=== PATIENT | male | born 2000 | race Caucasian/White ===

== ENCOUNTER 2020-03-04 09:21 | Day surgery (SDC) | payer OTHER ==
[2020-02-29 13:01] VITALS: BMI 25.8
[2020-03-04 13:01] VITALS: TEMP 97.9
[2020-03-04 13:06] VITALS: BP 96/60; PULSE 65
--- NOTE | 2020-03-06 16:47 | PATH ---
Surgical Pathology Report Patient Name: LOU JACINTO [facility]. Rec. #: [id number] /Age/Gender: 2000 (Age: 19) / M Account: [id number] Location: [facility] Taken: 03/04/2020 Received: 03/04/2020 Reported: 03/06/2020 Physicians: Lele Flood M.D. Specimen(s) Received A: BIOPSY SIGMOID COLON B: BIOPSY RECTO-SIGMOID COLON C: BIOPSY RECTUM Clinical History Rectal bleed Postoperative diagnosis: Proctitis Final Diagnosis A. SIGMOID COLON, BIOPSY: COLONIC MUCOSA WITH NO PATHOLOGIC FINDINGS. B. RECTOSIGMOID COLON, BIOPSY: MODERATE CHRONIC ACTIVE COLITIS WITH CRYPTITIS AND MILD CRYPT ARCHITECTURAL DISTORTION. NEGATIVE FOR DYSPLASIA. (SEE NOTE) C. RECTUM, BIOPSY: MODERATE CHRONIC ACTIVE PROCTITIS WITH CRYPTITIS AND MILD CRYPT ARCHITECTURAL DISTORTION. NEGATIVE FOR DYSPLASIA. (SEE NOTE) Note: These findings are compatible with chronic inflammatory bowel disease. Correlation with clinical/endoscopic findings and follow-up is recommended. Electronically Signed Molly Medina M.D. Gross Description A. Received in formalin, labeled "biopsy sigmoid colon" are 2 christie, irregular portions of soft tissue measuring 0.2 and 0.3 cm. in greatest dimension. The specimens are submitted in toto in one cassette. B. Received in formalin, labeled "biopsy rectosigmoid colon" are 2 christie, irregular portions of soft tissue measuring 0.1 and 0.4 cm. in greatest dimension. The specimens are submitted in toto in one cassette. C. Received in formalin, labeled "biopsy rectum" are 3 christie, irregular portions of soft tissue ranging from 0.1-0.2 cm. in greatest dimension. The specimens are submitted in toto in one cassette. DL03/05/2020 saudi03/05/2020
== END 2020-03-04 11:15 | disposition home or self-care (01) ==
LOC: FASU-ENDO 09:21
PROVIDERS: ATTEND Internal Medicine Gastroenterology
PROC: 0DBN8ZX Excision of Sigmoid Colon, Via Natural or Artificial Opening Endoscopic, Diagnostic (ICD-10-PCS; 2020-03-04)
PROC: 0DBP8ZX Excision of Rectum, Via Natural or Artificial Opening Endoscopic, Diagnostic (ICD-10-PCS; principal; 2020-03-04 10:13)
DX: K52.89 Other specified noninfective gastroenteritis and colitis (principal); K62.5 Hemorrhage of anus and rectum; R19.7 Diarrhea, unspecified
CPT/HCPCS: 88305-TC